=== PATIENT | male | born 1985 | race Hispanic/Latino ===

== ENCOUNTER 2021-07-07 12:03 | Emergency (ER) | payer SELFPAY ==
[~2021-07-07] VITALS: Ht 170.2 cm; Wt 88.5 kg
[2021-07-07] MEDS ORDERED: SODIUM CHLORIDE 0.9% 1000ML 1,000 ML IV STA (13:00)
[2021-07-07] MEDS ORDERED: KETOROLAC TROMETHAMINE 30 MG/ML VIAL IV NR (13:00)
[2021-07-07 13:17] LABS: BASOPHILS # (AUTO) 0.1 (0.0-0.1); BASOPHILS % 0.5 % (0.0-1.0); EOSINOPHILS # (AUTO) 0.7 (0.0-0.4); EOSINOPHILS % 5.6 % (0.0-6.0); HEMATOCRIT 47.8 % (38.2-49.6); LYMPHOCYTES % 22.8 % (18.0-39.1); MEAN CORPUSCULAR HEMOGLOBIN 26.5 pg (28-32); MEAN CORPUSCULAR HGB CONC 33.5 g/dL (31-35); MEAN CORPUSCULAR VOLUME 79.3 fL (81-99); MONOCYTES # (AUTO) 0.7 (0.2-0.8); MONOCYTES % 5.5 % (4.4-11.3); NEUTROPHILS # (AUTO) 8.6 (2.1-6.9); NEUTROPHILS % 65.1 % (38.7-80.0); PLATELET COUNT 283 x10e3/uL (140-360); RED BLOOD COUNT 6.03 x10e6/uL (4.3-5.7); RED CELL DISTRIBUTION WIDTH 12.2 % (11.7-14.4)
[2021-07-07 13:48] LABS: ALBUMIN 4.4 g/dL (3.5-5.0); ALBUMIN/GLOBULIN RATIO 1.2 (0.8-2.0); ANION GAP 15.6 mmol/L (8-16); CALCIUM 9.7 mg/dL (8.4-10.2); CREATININE, SERUM 0.97 mg/dL (0.72-1.25); POTASSIUM 3.6 mmol/L (3.5-5.1)
[2021-07-07 14:30] LABS: CLARITY,URINE CLEAR (CLEAR); COLOR,URINE YELLOW (YELLOW)
[2021-07-07 14:31] LABS: KETONES,URINE NEGATIVE (NEGATIVE); LEUKOCYTE ESTERASE ,URINE NEGATIVE (NEGATIVE); NITRITE,URINE NEGATIVE (NEGATIVE); PROTEIN,URINE DIPSTICK TRACE (NEGATIVE); URINE UROBILINOGEN 0.2 mg/dL (0.2 - 1)
[2021-07-07 14:32] LABS: BACTERIA,URINE RARE /HPF; EPITHELIAL CELLS,URINE FEW /LPF
[2021-07-07] MEDS ORDERED: CEFTRIAXONE 1 GM in SODIUM CHLORIDE 0.9% 50ML 50 ML IV ONE (15:30)
[2021-07-07] MEDS ORDERED: AZITHROMYCIN 250 MG TAB PO NR (15:30)
[2021-07-07 16:41] VITALS: BP 131/81
== END 2021-07-07 16:43 | disposition home or self-care (01) ==
LOC: ER 13:08
DX: R10.30 Lower abdominal pain, unspecified (principal); R07.81 Pleurodynia; R19.7 Diarrhea, unspecified; R73.9 Hyperglycemia, unspecified; D72.829 Elevated white blood cell count, unspecified; Z20.822 Contact with and (suspected) exposure to COVID-19
CPT/HCPCS: 36415; 74176; 80053; 81001; 83690; 85025; 99283; J0696; J1885; J7030; U0002

== ENCOUNTER 2022-02-28 16:08 | Inpatient (IN) | payer OTHER ==
[~2022-02-28] VITALS: Ht 172.7 cm; Wt 94.8 kg
[2022-02-28] VITALS (8 sets, daily range): BP systolic 101–142; BP diastolic 55–86
[2022-02-28] MEDS ORDERED: Vancomycin IV 1 GM in SODIUM CHLORIDE 0.9% 250ML 250 ML IV ONE (16:30)
[2022-02-28] MEDS ORDERED: ONDANSETRON HCL INJ 2MG/ML 2ML 2 MG/ML VIAL IV PRN ×2 (16:30→16:45)
[2022-02-28] MEDS ORDERED: SODIUM CHLORIDE 0.9% 1000ML 2,790 ML IV ONE (16:30)
[2022-02-28 16:36] LABS: BASOPHILS % 0.3 % (0.0-1.0); EOSINOPHILS # (AUTO) 0.1 (0.0-0.4); EOSINOPHILS % 0.3 % (0.0-6.0); HEMATOCRIT 44.5 % (38.2-49.6); HEMOGLOBIN 15.4 g/dL (14.0-18.0); LYMPHOCYTES # (AUTO) 1.7 (1.0-3.2); LYMPHOCYTES % 10.6 % (18.0-39.1); MEAN CORPUSCULAR HEMOGLOBIN 27.4 pg (28-32); MEAN CORPUSCULAR HGB CONC 34.6 g/dL (31-35); MEAN CORPUSCULAR VOLUME 79.2 fL (81-99); MONOCYTES # (AUTO) 1.4 (0.2-0.8); MONOCYTES % 8.5 % (4.4-11.3); NEUTROPHILS # (AUTO) 12.7 (2.1-6.9); NEUTROPHILS % 79.9 % (38.7-80.0); PLATELET COUNT 229 x10e3/uL (140-360); RED BLOOD COUNT 5.62 x10e6/uL (4.3-5.7); RED CELL DISTRIBUTION WIDTH 12.6 % (11.7-14.4)
[2022-02-28] MEDS ORDERED: Morphine 4mg Syringe 4 MG/ML INJ IV PRN (16:45)
[2022-02-28 16:57] LABS: ALBUMIN 4.2 g/dL (3.5-5.0); ALBUMIN/GLOBULIN RATIO 1.1 (0.8-2.0); ANION GAP 16.8 mmol/L (8-16); CALCIUM 9.4 mg/dL (8.4-10.2); CREATININE, SERUM 1.4 mg/dL (0.72-1.25); POTASSIUM 3.8 mmol/L (3.5-5.1)
[2022-02-28] MEDS ORDERED: TETANUS/DIPHTHERIA TOX ADULT 0.5 ML SYR IM ONE (17:00)
[2022-02-28] MEDS: Morphine 4mg Syringe 4 MG/ML INJ IV PRN (17:10)
[2022-02-28] MEDS: Doxycycline IV 100 MG in SODIUM CHLORIDE 0.9% 100 ML IV SCH (17:10)
[2022-02-28] MEDS: SODIUM CHLORIDE 0.9% 1000ML 1,000 ML IV SCH (17:23)
[2022-02-28 22:13] LABS: CHOL/HDL RATIO 4.6 (3.9-4.7)
[2022-03-01] VITALS (16 sets, daily range): BP systolic 85–134; BP diastolic 57–110
[2022-03-01] MEDS: SODIUM CHLORIDE 0.9% 1000ML 1,000 ML IV SCH ×4 (00:31→19:14)
[2022-03-01] MEDS: Morphine 4mg Syringe 4 MG/ML INJ IV PRN ×4 (00:45→20:15)
[2022-03-01] MEDS: TRAMADOL HCL 50 MG TAB PO PRN ×3 (03:11→16:55)
[2022-03-01 05:01] LABS: BASOPHILS % 0.2 % (0.0-1.0); EOSINOPHILS # (AUTO) 0.2 (0.0-0.4); EOSINOPHILS % 1.4 % (0.0-6.0); HEMATOCRIT 34.9 % (38.2-49.6); HEMOGLOBIN 11.7 g/dL (14.0-18.0); LYMPHOCYTES # (AUTO) 2.3 (1.0-3.2); LYMPHOCYTES % 17.2 % (18.0-39.1); MEAN CORPUSCULAR HEMOGLOBIN 27.2 pg (28-32); MEAN CORPUSCULAR HGB CONC 33.5 g/dL (31-35); MEAN CORPUSCULAR VOLUME 81.2 fL (81-99); MONOCYTES # (AUTO) 1.1 (0.2-0.8); MONOCYTES % 8.7 % (4.4-11.3); NEUTROPHILS # (AUTO) 9.4 (2.1-6.9); PLATELET COUNT 153 x10e3/uL (140-360); RED CELL DISTRIBUTION WIDTH 12.8 % (11.7-14.4)
[2022-03-01 05:23] LABS: ALBUMIN 3.1 g/dL (3.5-5.0); ALBUMIN/GLOBULIN RATIO 1.1 (0.8-2.0); ANION GAP 9.9 mmol/L (8-16); CALCIUM 7.9 mg/dL (8.4-10.2); CREATININE, SERUM 0.92 mg/dL (0.72-1.25); POTASSIUM 3.9 mmol/L (3.5-5.1)
[2022-03-01] MEDS: Doxycycline IV 100 MG in SODIUM CHLORIDE 0.9% 100 ML IV SCH ×2 (05:29→16:55)
[2022-03-01] MEDS: ENOXAPARIN SOD INJ 40 MG/0.4 ML SYR SC SCH (16:55)
[2022-03-01] MEDS ORDERED: ACETAMINOPHEN 325 MG TAB PO PRN (20:45)
[2022-03-02] VITALS (12 sets, daily range): BP systolic 96–160; BP diastolic 62–94
[2022-03-02] MEDS: TRAMADOL HCL 50 MG TAB PO PRN ×2 (03:12→14:14)
[2022-03-02] MEDS: SODIUM CHLORIDE 0.9% 1000ML 1,000 ML IV SCH ×2 (03:12→16:04)
[2022-03-02] MEDS: Morphine 4mg Syringe 4 MG/ML INJ IV PRN ×3 (04:17→22:16)
[2022-03-02] MEDS: Doxycycline IV 100 MG in SODIUM CHLORIDE 0.9% 100 ML IV SCH ×2 (05:13→16:51)
[2022-03-02] MEDS: ENOXAPARIN SOD INJ 40 MG/0.4 ML SYR SC SCH (16:51)
[2022-03-03] VITALS (14 sets, daily range): BP systolic 111–153; BP diastolic 32–98
[2022-03-03] MEDS: TRAMADOL HCL 50 MG TAB PO PRN ×2 (04:59→12:53)
[2022-03-03] MEDS: Doxycycline IV 100 MG in SODIUM CHLORIDE 0.9% 100 ML IV SCH ×2 (05:17→18:12)
[2022-03-03 08:22] LABS: BASOPHILS % 0.4 % (0.0-1.0); EOSINOPHILS # (AUTO) 0.5 (0.0-0.4); EOSINOPHILS % 4.9 % (0.0-6.0); HEMATOCRIT 37.6 % (38.2-49.6); HEMOGLOBIN 13.1 g/dL (14.0-18.0); LYMPHOCYTES # (AUTO) 2.2 (1.0-3.2); MEAN CORPUSCULAR HEMOGLOBIN 27.8 pg (28-32); MEAN CORPUSCULAR HGB CONC 34.8 g/dL (31-35); MEAN CORPUSCULAR VOLUME 79.8 fL (81-99); MONOCYTES % 9.3 % (4.4-11.3); NEUTROPHILS # (AUTO) 6.8 (2.1-6.9); NEUTROPHILS % 63.7 % (38.7-80.0); PLATELET COUNT 220 x10e3/uL (140-360); RED BLOOD COUNT 4.71 x10e6/uL (4.3-5.7); RED CELL DISTRIBUTION WIDTH 12.1 % (11.7-14.4)
[2022-03-03 08:36] LABS: ANION GAP 11.8 mmol/L (8-16); CALCIUM 8.8 mg/dL (8.4-10.2); CREATININE, SERUM 0.74 mg/dL (0.72-1.25); POTASSIUM 3.8 mmol/L (3.5-5.1)
[2022-03-03] MEDS: METFORMIN HCL 500 MG TAB PO SCH ×2 (08:46→17:09)
[2022-03-03] MEDS: Morphine 4mg Syringe 4 MG/ML INJ IV PRN (09:44)
[2022-03-03] MEDS: BACITRACIN ZINC 15 GM OINT TOP SCH (16:42)
[2022-03-03] MEDS ORDERED: SODIUM CHLORIDE 0.9% 500ML 500 ML ONE (16:59)
[2022-03-03] MEDS: ENOXAPARIN SOD INJ 40 MG/0.4 ML SYR SC SCH (17:09)
[2022-03-03] MEDS ORDERED: SODIUM CHLORIDE 0.9% 100 ML ONE (18:18)
[2022-03-04 04:04] VITALS: BP 126/85
[2022-03-04] MEDS: TRAMADOL HCL 50 MG TAB PO PRN ×2 (04:22→13:08)
[2022-03-04] MEDS: Doxycycline IV 100 MG in SODIUM CHLORIDE 0.9% 100 ML IV SCH (05:02)
[2022-03-04 07:58] VITALS: BP 126/85
[2022-03-04 08:32] VITALS: BP 115/64
[2022-03-04] MEDS ORDERED: METOPROLOL TARTRATE 25 MG TAB PO SCH (09:00)
[2022-03-04] MEDS ORDERED: LOPRESSOR25 MG PO (09:17)
[2022-03-04] MEDS ORDERED: ACETAMINOPHEN650 M1 PO (09:17)
[2022-03-04] MEDS ORDERED: METFORMIN HCL500 MG PO (09:17)
[2022-03-04] MEDS ORDERED: IBUPROFEN800 MG PO (09:17)
[2022-03-04] MEDS: METFORMIN HCL 500 MG TAB PO SCH (09:38)
[2022-03-04] MEDS: Morphine 4mg Syringe 4 MG/ML INJ IV PRN (09:40)
[2022-03-04] MEDS: BACITRACIN ZINC 15 GM OINT TOP SCH (09:41)
[2022-03-04] MEDS ORDERED: CEFUROXIME500 MG PO (11:54)
[2022-03-04] MEDS ORDERED: DOXYCYCLINE HY100 MG PO (11:55)
[2022-03-04] MEDS ORDERED: ONDANSETRON HCL 4 MG ORAL DISINTEGRATING TAB PO PRN (12:15)
[2022-03-04] MEDS ORDERED: DOXYCYCLINE HYCLATE TABLET 100 MG TAB PO SCH (17:00)
== END 2022-03-04 13:15 | disposition home or self-care (01) | DRG 872 ==
LOC: ER 16:15 → ERHOLD 16:44 → ICU 17:38 → MED/SURG2 03-03 10:20
PROVIDERS: ADMIT Internal Medicine; ATTEND Internal Medicine
DX: A41.50 Gram-negative sepsis, unspecified (principal); L03.116 Cellulitis of left lower limb; N17.9 Acute kidney failure, unspecified; R17 Unspecified jaundice; L03.115 Cellulitis of right lower limb; E11.69 Type 2 diabetes mellitus with other specified complication; R65.20 Severe sepsis without septic shock; E66.9 Obesity, unspecified; Z68.31 Body mass index [BMI] 31.0-31.9, adult; W16.42XA Fall into unspecified water causing other injury, initial encounter; Y92.89 Other specified places as the place of occurrence of the external cause; W16.312A Fall into other water striking water surface causing other injury, initial encounter; Y93.19 Activity, other involving water and watercraft; Z20.822 Contact with and (suspected) exposure to COVID-19; F17.210 Nicotine dependence, cigarettes, uncomplicated; S90.812A Abrasion, left foot, initial encounter; S90.811A Abrasion, right foot, initial encounter
CPT/HCPCS: 36415; 71045; 80048; 80053; 80061; 82948; 83036; 83605; 85025; 87040; 90471; 90714; 93005; 94799; 97139; 99251; 99284; J0692; J1650; J2270; J2405; J7030; J7040; J7050; U0002